=== PATIENT | female | born 1970 | race Caucasian/White ===

== ENCOUNTER 2016-05-12 20:20 | Emergency (ER) | payer MEDICARE, MEDICAID ==
[~2016-05-12] VITALS: Ht 175.3 cm; Wt 115.0 kg
[~2016-05-12 20:20] MED LIST: ALBUTEROL SULFAT3 M3 IH; ALEVE 220MG220 MG PO; ATARAX 25MG25 MG/TAB PO; CELEBREX 200MG200 MG PO; DULERA1 AR1 IH; ERY PO; IMITREX100 MG PO; LORTAB 5/500 501 TAB PO; MEDROL 4MG DOSPA4 MG PO; NO HOME MEDICATIONS; NORCO 325 MG-51 TAB PO; PHENERGAN W/CO120 ML PO; PREDNISONE10 MG PO; PRILOSEC 20MG20 MG PO; PROVENTIL0.09 MG/A1 IH; ZOFRAN 4MG T4 MG/TAB PO
[2016-05-12 20:35] VITALS: TEMP 98.6
[2016-05-12 22:25] VITALS: BP 127/79; PULSE 91
== END 2016-05-12 22:24 | disposition home or self-care (01) ==
LOC: COL.ER 20:20
DX: S00.83XA Contusion of other part of head, initial encounter (principal); Y04.0XXA Assault by unarmed brawl or fight, initial encounter

== ENCOUNTER 2016-12-21 14:00 | Outpatient (RCR) | payer MEDICARE, MEDICAID | END 2017-01-06 08:17 | LOC: WSPT 14:00 | DX: M25.551 Pain in right hip (principal) | CPT/HCPCS: G8978-GP; G8979-GP ==

== ENCOUNTER → 2017-01-19 | Outpatient (CLI) | payer MEDICARE, MEDICAID | LOC: MC.RAD 13:30 | DX: N63 Unspecified lump in breast (principal) ==

== ENCOUNTER 2017-03-26 11:02 | Emergency (ER) | payer MEDICARE, MEDICAID ==
[~2017-03-26] VITALS: Ht 177.8 cm; Wt 112.3 kg
[2017-03-26 11:08] VITALS: TEMP 98.8
[2017-03-26 14:04] VITALS: BP 118/77; PULSE 74
== END 2017-03-26 14:05 | disposition home or self-care (01) ==
LOC: COL.ER 11:02
DX: S16.1XXA Strain of muscle, fascia and tendon at neck level, initial encounter (principal); S40.022A Contusion of left upper arm, initial encounter; Z87.891 Personal history of nicotine dependence; V49.40XA Driver injured in collision with unspecified motor vehicles in traffic accident, initial encounter
CPT/HCPCS: J1170; J2405

== ENCOUNTER 2017-07-11 21:47 | Emergency (ER) | payer MEDICARE, MEDICAID ==
[~2017-07-11] VITALS: Ht 177.8 cm; Wt 112.7 kg
[2017-07-11 21:52] VITALS: TEMP 97
[2017-07-11] MEDS ORDERED: PROAIR HFA0.09 MG/AC IH (22:01)
[2017-07-11] MEDS ORDERED: NORCO 325 MG-51 TAB PO (22:02)
[2017-07-11 22:25] LABS: BASO # 0.1 (0.0-0.2); BASO % 0.8 % (0.0-2.0); EOS # 0.1 (0.0-0.7); EOS % 0.9 % (0-4.0); GRAN # 4.2 (1.4-6.5); GRAN % 66.5 % (42.2-75.2); HEMATOCRIT 41.2 % (37.0-47.0); LYMPH # 1.6 (1.2-3.4); LYMPH % 25.5 % (20.0-51.0); MEAN CELL VOLUME 95 fl (80.0-100.0); MEAN CORPUSCULAR HEMOGLOBIN 32 pg (27.0-31.0); MEAN CORPUSCULAR HGB CONC 34 g/dl (33.0-37.0); MEAN PLATELET VOLUME 10.3 fl (7.4-10.4); MONO # 0.4 (0.1-0.6); MONO % 6.1 % (1.7-9.3); PLATELET COUNT 282 K/mm3 (130-400); RED BLOOD COUNT 4.35 M/mm3 (4.10-5.30)
[2017-07-11 22:30] LABS: ANION GAP 11 mmol/L (7-16); BLOOD UREA NITROGEN 10 mg/dL (7-17); CALCIUM 9.4 mg/dL (8.4-10.2); CARBON DIOXIDE 25 mmol/L (22-30); CHLORIDE 106 mmol/L (98-107); CREATININE, serum 0.82 mg/dL (0.52-1.25); GLUCOSE 104 mg/dL (74-106); POTASSIUM 3.6 mmol/L (3.4-5.0); SODIUM 142 mmol/L (137-145)
[2017-07-11 22:42] LABS: TROPONIN-I < 0.012 ng/mL (0.000-0.034)
[2017-07-12] MEDS ORDERED: FLEXERIL 1010 MG/TAB PO (01:09)
[2017-07-12 01:10] VITALS: BP 120/74; PULSE 59
== END 2017-07-12 01:30 | disposition home or self-care (01) ==
LOC: COL.ER 21:47
PROVIDERS: Emergency Medicine
DX: R07.89 Other chest pain (principal); I10 Essential (primary) hypertension; I25.2 Old myocardial infarction; J45.909 Unspecified asthma, uncomplicated; K21.9 Gastro-esophageal reflux disease without esophagitis; F17.210 Nicotine dependence, cigarettes, uncomplicated; Z86.69 Personal history of other diseases of the nervous system and sense organs; Z90.710 Acquired absence of both cervix and uterus; Z90.89 Acquired absence of other organs; Z98.890 Other specified postprocedural states
CPT/HCPCS: J1885